=== PATIENT | female | born 1960 | race Caucasian/White ===

== ENCOUNTER 2017-04-27 19:15 | Observation (INO) ==
[2017-04-27] MEDS ORDERED: GI Cocktail 40 ML EACH PO ONE (19:30)
[2017-04-27] MEDS ORDERED: Dicyclomine 20 MG/2 ML AMPUL IM ONE (19:31)
[2017-04-27 19:44] LABS: Bilirubin,Urine Negative (Negative); Blood,Urine Negative (Negative); Clarity,Urine Clear (Clear); Color,Urine Yellow (Yellow); Glucose,Urine (UA) Normal (Normal); Ketones,Urine Negative (Negative); Leukocyte Esterase,Urine Negative (Negative); Nitrite,Urine Negative (Negative); PH,Urine 6.5 pH Units (5.0-8.0); Protein,Urine Negative (Neg-Trace); Specific Gravity,Urine 1.015 (1.010-1.025); Urobilinogen,Urine Normal (Normal)
[2017-04-27 20:06] LABS: Basophils % 0.3 %; Eosinophils # 0.1 K/mcL (0.0-0.6); Eosinophils % 1.5 %; Hematocrit 39.9 % (35.3-44.9); Hemoglobin 13.5 g/dL (11.5-15.4); Immature Granulocytes % 0.4 % (0-4); Lymphocytes # 2.2 K/mcL (0.6-4.6); Mean Corpuscular HGB Conc 33.8 g/dL (31.6-35.5); Mean Corpuscular Hemoglobin 30.3 pg (28.0-33.3); Mean Corpuscular Volume 89.5 fL (83.0-100.0); Mean Platelet Volume 11.5 fL (9.4-12.4); Monocytes # 0.6 K/mcL (0.0-1.3); Monocytes % 7.6 %; Neutrophils # 4.9 K/mcL (1.6-8.9); Platelet Count 226 K/mcL (140-400); Red Blood Count 4.46 M/mcL (3.82-4.97); Red Cell Distribution Width 12.3 % (11.5-14.5); Segmented Neutrophils % 62.2 %
[2017-04-27 20:19] LABS: Alanine Aminotransferase 44 Units/L (7-52); Albumin 4.3 g/dL (3.5-5.7); Albumin/Globulin Ratio 1.6 (1.1-2.2); Alkaline Phosphatase 82 Units/L (34-104); Aspartate Amino Transferase 27 Units/L (13-39); BUN/Creatinine Ratio 21 (6-26); Bilirubin,Indirect 0.3 mg/dL (0.0-1.2); Bilirubin,Total 0.3 mg/dL (0.3-1.0); Blood Urea Nitrogen 15 mg/dL (6-20); Calcium 9.4 mg/dL (8.6-10.3); Carbon Dioxide 23 mEq/L (23-29); Chloride 107 mEq/L (98-107); Globulin 2.7 g/dL (2.4-3.5); Glucose 102 mg/dL (70-105); Lipase 24 Units/L (11-82); Osmolality,Calculated 289 (280-300); Sodium 139 mEq/L (136-145); eGFR For African Americans > 60 (> 60); eGFR For Non-African Americans > 60 (> 60)
[2017-04-27] MEDS ORDERED: Aspirin 81 MG TAB.CHEW PO ONE (21:18)
--- NOTE | 2017-04-27 21:23 | Emergency Department Note ---
Disposition Clinical Impression: Chest pain, rule out acute myocardial infarction Abdominal pain Qualifiers: Abdominal location: right upper quadrant Qualified Code(s): R10.11 - Right upper quadrant pain Disposition: Still a Patient Condition: Fair Time of Disposition: 21:25 Abdominal Pain HPI - General Chief Complaint: ED Abdominal Pain Stated Complaint: abd pain Time Seen by Provider: 04/27/17 19:17 Source: patient, EMS Mode of arrival: EMS Limitations: no limitations Nursing Notes Reviewed: Yes Vital Signs Reviewed: Yes - History of Present Illness HPI Narrative: 56-year-old female presents emergency Department with concerns of right upper quadrant abdominal pain and epigastric pain. Patient states her symptoms have been present over the past 1.5 weeks. Patient states she was evaluated one week ago and had a CT of the abdomen and pelvis which was negative for acute surgical abnormality. Patient has records from her previous visit with her which I been able to evaluate. Patient was diagnosed with a generic abdominal pain however in the record it mentions possible gastritis versus gastric ulcer. Patient has follow-up with GI physician within the next week for further evaluation of possible ulcer. Patient initially denies chest pain, shortness of breath, palpitations. She states she has multiple episodes of loose stool a day. Patient states she will take a pill and "have diarrhea 10 minutes later with the pill fully formed". No recent trauma. No changes in medications other than starting Carafate within the past week. Pain Scale: 9 - Related Data Home Medications Medication Instructions Recorded Confirmed Tizanidine HCl 4 mg PO BID PRN 05/29/15 04/28/17 Gabapentin [Neurontin] 800 mg PO TID 02/22/16 04/28/17 BuPROPion SR (12 HR) [Wellbutrin 100 mg PO BID 04/28/17 04/28/17 SR] Dexlansoprazole [Dexilant] 60 mg PO BID 04/28/17 04/28/17 Fenofibrate 160 mg PO DAILY 04/28/17 04/28/17 [place]-3/Dha/Epa/Fish Oil [Fish Oil 1,000 mg PO BID 04/28/17 04/28/17 1,000 mg Softgel] Oxybutynin Chloride [Ditropan Xl] 5 mg PO DAILY 04/28/17 04/28/17 Ropinirole HCl [Requip] 1 mg PO BID 04/28/17 04/28/17 SUMAtriptan Succinate [Imitrex] 100 mg PO AD PRN 04/28/17 04/28/17 Simvastatin [Zocor] 80 mg PO HS 04/28/17 04/28/17 Topiramate [Topamax] 50 mg PO BID 04/28/17 04/28/17 Trazodone HCl 100 mg PO HS 04/28/17 04/28/17 Previous Rx's Medication Instructions Recorded HYDROcodone/Acet 5/325 mg [[place] 1 - 2 tab PO Q6H PRN #40 tablet 04/30/17 5-325 mg] Ondansetron [Zofran] 8 mg PO Q8HR PRN #15 tablet 04/30/17 Sennosides/Docusate Sodium [[place] 1 each PO DAILY #7 tablet 04/30/17 Plus] Allergies Allergy/AdvReac Type Severity Reaction Status Date / Time doxycycline Allergy Anaphylaxis Verified 02/02/15 20:40 ketorolac [From Toradol] Allergy Anaphylaxis Verified 05/29/15 16:00 tramadol Allergy Difficulty Verified 02/02/15 20:40 Breathing All systems ED: reviewed and negative except as stated. 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 Psychiatric history: Reports: anxiety, depression - Social History Smoking status: Former smoker Alcohol use: Reports: rarely Drug use: Reports: none Physical Exam General: Alert and in no acute distress Skin: Warm, dry, intact Head: Normocephalic and atraumatic Neck: Supple, trachea midline and no tenderness Cardiovascular: RRR, no murmur, normal perfusion Respiratory: CTAB, no wheezing, cough, or respiratory distress Musculoskeletal: Normal strength, no tenderness, swelling or deformity GI: Soft, tenderness to palpation of the right upper quadrant without evidence of rigidity, guarding, rebound. Neuro: A&O to person, place, time and situation. No focal deficits noted on exam Psychiatric: cooperative and appropriate mood and affect. - General Limitations: no limitations General appearance: alert, in no apparent distress Course - Reevaluation(s) Reevaluation #1: 21:20 patient tolerated by mouth intake well in the emergency department. She did not have any bowel movements while in the emergency department despite drinking to full glasses of water which she states usually causes a bowel movement. She now complains of pain to the right lateral chest which is described as a sharp stabbing pain and an ache. Patient is now in the room clutching her right chest stating the pain is now worse. Patient now reports that she had chest pain 2 days ago, was evaluated at [facility] see however she states they did not do a chest x-ray or cardiac evaluation. She is unable to recall when her last cardiac evaluation was performed. We do not have a stress test or other cardiac evaluation in our system. I will obtain a d-dimer to rule out PE and I will admit the patient for further care and evaluation of her chest pain. Vital Signs Temperature 98.2 F 04/27/17 19:16 Pulse Rate 74 04/27/17 19:16 Respiratory Rate 18 04/27/17 19:16 Blood Pressure 132/81 04/27/17 19:16 O2 Sat by Pulse Oximetry 95 04/27/17 19:16 Temperature 98 F 04/30/17 15:00 Pulse Rate 76 04/30/17 15:00 Respiratory Rate 18 04/30/17 15:00 Blood Pressure 132/78 04/30/17 15:00 O2 Sat by Pulse Oximetry 96 04/30/17 15:00 Oxygen Delivery Oxygen Delivery Room Air Abdominal Pain - MDM Narrative Medical decision making narrative: D-dimer returned elevated. Chest x-ray did not show evidence of acute infiltrate. Patient will receive CTA of the chest to rule out PE. Patient care will be transferred to night physician, Dr. Alvarenga, pending further care and evaluation and likely admission to the hospital for further care. - Medical Records Medical records reviewed: Yes I reviewed the patient's medical records. - Lab Data Lab results reviewed: Yes I reviewed the patient's lab results. Result diagrams: 04/30/17 02:38 04/28/17 02:36 Lab Results 04/27/17 04/27/17 04/27/17 Range/Units 19:36 19:53 19:53 WBC 7.9 (4.3-11.1) K/mcL RBC 4.46 (3.82-4.97) M/mcL Hgb 13.5 (11.5-15.4) g/dL Hct 39.9 (35.3-44.9) % MCV 89.5 (83.0-100.0) fL MCH 30.3 (28.0-33.3) pg MCHC 33.8 (31.6-35.5) g/dL RDW 12.3 (11.5-14.5) % Plt Count 226 (140-400) K/mcL MPV 11.5 (9.4-12.4) fL Immature Gran % 0.4 (0-4) % Seg Neutrophils % 62.2 % Lymphocytes % 28.0 % Monocytes % 7.6 % Eosinophils % 1.5 % Basophils % 0.3 % Neutrophils # 4.9 (1.6-8.9) K/mcL Lymphocytes # 2.2 (0.6-4.6) K/mcL Monocytes # 0.6 (0.0-1.3) K/mcL Eosinophils # 0.1 (0.0-0.6) K/mcL Basophils # 0.0 (0.0-0.2) K/mcL D-Dimer (0-500) ng/mLFEU Sodium 139 (136-145) mEq/L Potassium 4.0 (3.5-5.1) mEq/L Chloride 107 (98-107) mEq/L Carbon Dioxide 23 (23-29) mEq/L BUN 15 (6-20) mg/dL Creatinine 0.71 (0.60-1.20) mg/dL Est GFR ( Amer) > 60 (> 60) Est GFR (Non-Af Amer) > 60 (> 60) BUN/Creatinine Ratio 21 (6-26) Glucose 102 (70-105) mg/dL Calculated Osmolality 289 (280-300) Lactic Acid (0.5-2.2) mmol/L Calcium 9.4 (8.6-10.3) mg/dL Total Bilirubin 0.3 (0.3-1.0) mg/dL Direct Bilirubin 0.0 (0.0-0.2) mg/dL Indirect Bilirubin 0.3 (0.0-1.2) mg/dL AST 27 (13-39) Units/L ALT 44 (7-52) Units/L Alkaline Phosphatase 82 (34-104) Units/L Troponin I (< 0.04) ng/mL Serum Total Protein 7.0 (6.4-8.9) g/dL Albumin 4.3 (3.5-5.7) g/dL Globulin 2.7 (2.4-3.5) g/dL Albumin/Globulin Ratio 1.6 (1.1-2.2) Lipase 24 (11-82) Units/L Urine Color Yellow (Yellow) Urine Clarity Clear (Clear) Urine pH 6.5 (5.0-8.0) pH Units Ur Specific [place] 1.015 (1.010-1.025) Urine Protein Negative (Neg-Trace) mg/dL Urine Glucose (UA) Normal (Normal) mg/dL Urine Ketones Negative (Negative) mg/dL Urine Blood Negative (Negative) Urine Nitrite Negative (Negative) Urine Bilirubin Negative (Negative) Urine Urobilinogen Normal (Normal) mg/dL Ur Leukocyte Esterase Negative (Negative) Ur Culture Indicated? NO (NO) Stool Occult Blood (Negative) Specimen Rejected 04/27/17 04/27/17 04/27/17 Range/Units 19:53 19:53 19:53 WBC (4.3-11.1) K/mcL RBC (3.82-4.97) M/mcL Hgb (11.5-15.4) g/dL Hct (35.3-44.9) % MCV (83.0-100.0) fL MCH (28.0-33.3) pg MCHC (31.6-35.5) g/dL RDW (11.5-14.5) % Plt Count (140-400) K/mcL MPV (9.4-12.4) fL Immature Gran % (0-4) % Seg Neutrophils % % Lymphocytes % % Monocytes % % Eosinophils % % Basophils % % Neutrophils # (1.6-8.9) K/mcL Lymphocytes # (0.6-4.6) K/mcL Monocytes # (0.0-1.3) K/mcL Eosinophils # (0.0-0.6) K/mcL Basophils # (0.0-0.2) K/mcL D-Dimer (0-500) ng/mLFEU Sodium (136-145) mEq/L Potassium (3.5-5.1) mEq/L Chloride (98-107) mEq/L Carbon Dioxide (23-29) mEq/L BUN (6-20) mg/dL Creatinine (0.60-1.20) mg/dL Est GFR ( Amer) (> 60) Est GFR (Non-Af Amer) (> 60) BUN/Creatinine Ratio (6-26) Glucose (70-105) mg/dL Calculated Osmolality (280-300) Lactic Acid 1.5 (0.5-2.2) mmol/L Calcium (8.6-10.3) mg/dL Total Bilirubin (0.3-1.0) mg/dL Direct Bilirubin (0.0-0.2) mg/dL Indirect Bilirubin (0.0-1.2) mg/dL AST (13-39) Units/L ALT (7-52) Units/L Alkaline Phosphatase (34-104) Units/L Troponin I < 0.03 (< 0.04) ng/mL Serum Total Protein (6.4-8.9) g/dL Albumin (3.5-5.7) g/dL Globulin (2.4-3.5) g/dL Albumin/Globulin Ratio (1.1-2.2) Lipase (11-82) Units/L Urine Color (Yellow) Urine Clarity (Clear) Urine pH (5.0-8.0) pH Units Ur Specific [place] (1.010-1.025) Urine Protein (Neg-Trace) mg/dL Urine Glucose (UA) (Normal) mg/dL Urine Ketones (Negative) mg/dL Urine Blood (Negative) Urine Nitrite (Negative) Urine Bilirubin (Negative) Urine Urobilinogen (Normal) mg/dL Ur Leukocyte Esterase (Negative) Ur Culture Indicated? (NO) Stool Occult Blood (Negative) Specimen Rejected Clotted 04/27/17 04/27/17 Range/Units 20:52 22:09 WBC (4.3-11.1) K/mcL RBC (3.82-4.97) M/mcL Hgb (11.5-15.4) g/dL Hct (35.3-44.9) % MCV (83.0-100.0) fL MCH (28.0-33.3) pg MCHC (31.6-35.5) g/dL RDW (11.5-14.5) % Plt Count (140-400) K/mcL MPV (9.4-12.4) fL Immature Gran % (0-4) % Seg Neutrophils % % Lymphocytes % % Monocytes % % Eosinophils % % Basophils % % Neutrophils # (1.6-8.9) K/mcL Lymphocytes # (0.6-4.6) K/mcL Monocytes # (0.0-1.3) K/mcL Eosinophils # (0.0-0.6) K/mcL Basophils # (0.0-0.2) K/mcL D-Dimer 865 H (0-500) ng/mLFEU Sodium (136-145) mEq/L Potassium (3.5-5.1) mEq/L Chloride (98-107) mEq/L Carbon Dioxide (23-29) mEq/L BUN (6-20) mg/dL Creatinine (0.60-1.20) mg/dL Est GFR ( Amer) (> 60) Est GFR (Non-Af Amer) (> 60) BUN/Creatinine Ratio (6-26) Glucose (70-105) mg/dL Calculated Osmolality (280-300) Lactic Acid (0.5-2.2) mmol/L Calcium (8.6-10.3) mg/dL Total Bilirubin (0.3-1.0) mg/dL Direct Bilirubin (0.0-0.2) mg/dL Indirect Bilirubin (0.0-1.2) mg/dL AST (13-39) Units/L ALT (7-52) Units/L Alkaline Phosphatase (34-104) Units/L Troponin I (< 0.04) ng/mL Serum Total Protein (6.4-8.9) g/dL Albumin (3.5-5.7) g/dL Globulin (2.4-3.5) g/dL Albumin/Globulin Ratio (1.1-2.2) Lipase (11-82) Units/L Urine Color (Yellow) Urine Clarity (Clear) Urine pH (5.0-8.0) pH Units Ur Specific [place] (1.010-1.025) Urine Protein (Neg-Trace) mg/dL Urine Glucose (UA) (Normal) mg/dL Urine Ketones (Negative) mg/dL Urine Blood (Negative) Urine Nitrite (Negative) Urine Bilirubin (Negative) Urine Urobilinogen (Normal) mg/dL Ur Leukocyte Esterase (Negative) Ur Culture Indicated? (NO) Stool Occult Blood Negative (Negative) Specimen Rejected - Radiology Data Radiology results reviewed: Yes I reviewed the patient's radiology results. - EKG Data EKG attestation: Yes I reviewed and interpreted this EKG. EKG results narrative: ECG - interpreted by ED physician. Rate 66, normal sinus rhythm, no STEMI, NH, QT intervals, and QRS within normal limits Attestation Statement - Attestation Attestation: Please see my note from my documentation. I did not document on this chart. This chart is only being signed at the request medical records. It only reflects the evaluation and decision-making of Dr. Stevenson.
[2017-04-27] MEDS ORDERED: *HR* Morphine 2 MG/ML SYRINGE IVP ONE (22:04)
[2017-04-27] MEDS ORDERED: *HR* Morphine 2 MG/ML SYRINGE ONE (22:06)
[2017-04-28] MEDS ORDERED: Metoclopramide 10 MG/2 ML VIAL IVP STA ×2 (00:08→00:48)
[2017-04-28] MEDS ORDERED: Hyoscyamine SL 0.125 MG TAB.SUBL SL STA (00:08)
--- NOTE | 2017-04-28 00:13 | Emergency Department Note ---
START Narrative - START START: Patient was taken over at signout from Dr. olsen. The patient presented for right upper quadrant abdominal pain. Patient's right upper quadrant abdominal pain has been intermittent for the last week. No known aggravating or alleviating factors. Patient states she had previous gallbladder surgery. She was seen at [facility] previously in the emergency department and had CAT scan and workup. She will was discharged and return to the urgent care for evaluation when she was transferred here. Patient describes the pain as a sharp pain with radiation into the chest. She says that when it hurts takes her breath away. She has got associated headache which she believes is secondary to the nausea and vomiting. She has had several episodes of diarrhea. The patient has taken her home medications without any relief. Patient was given medications in the emergency department and states she has not felt any better. This is the patient's second visit for repeated the worsening episodes of pain. Previous CT scan from [facility] has been obtained and her CD is here to be uploaded. The patient's CTA was also negative. After long discussion with family she is not comfortable going home secondary to not being able to keep things down. Patient complained of significant diarrhea but has not had any in the emergency department. On my evaluation the patient continues to have a wet rag over her face complaining of discomfort. The case will be discussed with the hospitalist. Patient will be admitted for intractable right upper quadrant abdominal pain with radiation into the chest. Chest pain. Intractable nausea. Discussed with the hospitalist, Dr. Jaime. Request the patient get the appropriate medications as well as be started on maintenance fluids. Patient accepted for admission.
[2017-04-28] MEDS ORDERED: *HR* LORazepam 2 MG/ML VIAL IVP ONE ×2 (00:23→01:00)
[2017-04-28] MEDS: 0.9 % Sodium Chloride 1,000 ML IVC SCH ×2 (00:41→13:15)
[2017-04-28] MEDS ORDERED: Dicyclomine 20 MG/2 ML AMPUL IM ONE (00:45)
[2017-04-28] MEDS ORDERED: Hyoscyamine SL 0.125 MG TAB.SUBL SL ONE (01:00)
[2017-04-28] MEDS ORDERED: Naloxone 0.4 MG/ML INJ IVP PRN (02:18)
[2017-04-28] MEDS ORDERED: Acetaminophen 325 MG TABLET PO PRN (02:18)
[2017-04-28] MEDS ORDERED: *HR* Promethazine 25 MG/ML VIAL IVP PRN (02:18)
[2017-04-28] MEDS ORDERED: *HR* HYDROmorphone (PF) 1 MG/ML SYRINGE IVP PRN (02:18)
[2017-04-28 02:46] LABS: Basophils % 0.5 %; Eosinophils # 0.1 K/mcL (0.0-0.6); Eosinophils % 1.1 %; Hematocrit 38.7 % (35.3-44.9); Immature Granulocytes % 0.1 % (0-4); Lymphocytes # 2.4 K/mcL (0.6-4.6); Lymphocytes % 31.7 %; Mean Corpuscular HGB Conc 33.6 g/dL (31.6-35.5); Mean Corpuscular Hemoglobin 30.5 pg (28.0-33.3); Mean Corpuscular Volume 90.8 fL (83.0-100.0); Mean Platelet Volume 11.3 fL (9.4-12.4); Monocytes # 0.6 K/mcL (0.0-1.3); Monocytes % 7.6 %; Neutrophils # 4.5 K/mcL (1.6-8.9); Platelet Count 222 K/mcL (140-400); Red Blood Count 4.26 M/mcL (3.82-4.97); Red Cell Distribution Width 12.4 % (11.5-14.5)
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
[2017-04-28 02:59] LABS: BUN/Creatinine Ratio 17 (6-26); Blood Urea Nitrogen 12 mg/dL (6-20); Calcium 9.3 mg/dL (8.6-10.3); Carbon Dioxide 28 mEq/L (23-29); Chloride 106 mEq/L (98-107); Glucose 91 mg/dL (70-105); Osmolality,Calculated 289 (280-300); Potassium 3.9 mEq/L (3.5-5.1); Sodium 140 mEq/L (136-145); eGFR For African Americans > 60 (> 60); eGFR For Non-African Americans > 60 (> 60)
[2017-04-28] MEDS: tiZANidine 4 MG TABLET PO SCH ×2 (03:19→22:47)
[2017-04-28] MEDS: rOPINIRole 1 MG TABLET PO SCH ×3 (03:19→22:48)
[2017-04-28] MEDS: Pantoprazole 40 MG VIAL IVP SCH ×2 (05:10→16:40)
[2017-04-28] MEDS: *HR* HYDROcodone/Acet 5/325 mg TABLET PO PRN ×3 (05:10→16:39)
[2017-04-28] MEDS: *HR* Heparin 5,000 UNIT/ML VIAL SQ SCH ×2 (05:11→16:40)
--- NOTE | 2017-04-28 10:26 | Event Note ---
<Rachael Pena - Last Filed: 04/28/17 12:25> Date of Encounter: 04/28/17 Time of Encounter: 10:25 Patient learning oriented times 3. She reports that she still has right upper quadrant abdominal pain. She has not had vomiting while here. Her last bowel movement was yesterday at home, she states that it was not a normal bowel movement but still loose. Gen.: Vitals noted. No acute distress. AAOx3 HEENT: oropharynx clear, Normocephalic, atraumatic Neck: Supple. No adenopathy Cardiac: RRR, no murmur, +S1/S2 Pulmonary: CTA bilaterally, no wheezes, rales or rhonchi, equal chest expansion Abdomen: soft, RUQ and epigastric tender, Bowel sounds noted, no guarding Extremities: no BLE edema, nontender calf, no cyanosis or clubbing Neuro: A&Ox3, moves all extremities, no focal deficits Psych: Appropriate mood and behavior A/P Abdominal pain: etiology is undetermined. Differential includes gastroenteritis, gastric ulcer multiple bouts of watery and mucus diarrhea, nausea and vomiting not bloody. No diarrhea since given an antidiarrheal medication from the ER at her last visit. Last bowel movement was yesterday a home which was loose but not watery cholecystectomy 2006 afebrile, WBC WNL, urinalysis normal liver enzymes, bilirubin, lipase levels are normal fecal occult negative for blood plan consult surgery for evaluation and possible EGD, recommendations are appreciated ultrasound liver pending G.I. panel ordered NPO chest pain, rule out acute myocardial infarction EKG in ER show normal sinus rhythm and no ST changes troponins stable CTA chest was negative for PE DVT prophylaxis heparin SQ <Candelario Hopkins - Last Filed: 04/28/17 16:47> Date of Encounter: 04/28/17 I conducted a face to face diagnostic evaluation of this patient and my medical decision-making was reviewed with the Resident Physician. I agree with the documented findings, disposition and treatment plan as described except to the extent set forth below: Patient reports burning sharp and crampy epigastric abdominal pain associated with nausea and vomiting lasting for the last 9 days. On examination abdomen is soft, tender in epigastric area and right upper quadrant. No guarding or rebound tenderness. Plan: IV fluids. Nothing by mouth. In control. Antiemetics. Consult surgery. Candelario Hopkins MD
--- NOTE | 2017-04-28 11:42 | General Surgery Consult Note ---
<Bee Mckinnon - Last Filed: 04/28/17 17:29> Date of Encounter: 04/28/17 Time of Encounter: 11:42 Assessment and Plan (1) Abdominal pain Current Visit: Yes Status: Acute 56 y M w/ Hx of fibromyalgia s/p cholecystectomy presenting to ER with chronic RUQ, worsened in past nine days U/S Mild increased hepatic echogenicity consistent with steatosis, otherwise unremarkable -NPO diet from midnight -Plan for EGD. Attending Dr. Lee discussed risk and benefits of procedure with pt and family Pt amenable to plan and and verbalized understanding. Qualifiers: Abdominal location: right upper quadrant Qualified Code(s): R10.11 - Right upper quadrant pain (2) Chest pain, rule out acute myocardial infarction Current Visit: Yes Status: Acute Elevated D-Dimer. CTA, which was negative for PE. Management per primary team. (3) DVT prophylaxis Current Visit: Yes Status: Acute Management per primary team. History of Present Illness Consult date: 04/28/17 Reason for consult: abdominal pain Requesting physician: Lindsay David History of present illness: Ms. Cortes is a 56-year-old female who presented to emergency Department with concerns of right upper quadrant abdominal pain and epigastric pain. Patient states her symptoms have been present over the past nine days. Pain intermittent over past few years. No other household members with similar symptoms. Patient has follow-up with GI physician within the next week for further evaluation of possible ulcer. Endorses emesis, prior to admission. however non-bloody. No emesis this morning. No bloody bowel movements. Pt had continued appetite up to admission. Pt denies recent PPI use. Has missed multiple scheduled outpatient visit for GI. Pt has been seen in [facility] and had CT abd there, result fatty liver. Surgical History: Cholecystectomy (2005) EGD (2016) - OSH Past Med Surg Social Fam HX - Past Medical History Medical history: fibromyalgia, GERD, hyperlipidemia, kidney stones, other Psychiatric history: anxiety, depression - Past Surgical History Surgical History: cholecystectomy - Social History Smoking Status: Never smoker Smokeless Tobacco Status: No Alcohol use: rarely Drug use: none - Family History Father Living Status: Hx Family Cardiac Disorders: Yes Hx Family Respiratory Disorders: Yes (COPD) Mother Living Status: Hx Family Neurologic Disorders: Yes (alzheimers) Medications and Allergies Tizanidine HCl 4 mg PO BID PRN 05/29/15 [History] Gabapentin [Neurontin] 800 mg PO TID 02/22/16 [History] BuPROPion SR (12 HR) [Wellbutrin SR] 100 mg PO BID 04/28/17 [History] Dexlansoprazole [Dexilant] 60 mg PO BID 04/28/17 [History] Fenofibrate 160 mg PO DAILY 04/28/17 [History] [place]-3/Dha/Epa/Fish Oil [Fish Oil 1,000 mg Softgel] 1,000 mg PO BID 04/28/17 [ History] Oxybutynin Chloride [Ditropan Xl] 5 mg PO DAILY 04/28/17 [History] Ropinirole HCl [Requip] 1 mg PO BID 04/28/17 [History] SUMAtriptan Succinate [Imitrex] 100 mg PO AD PRN 04/28/17 [History] Simvastatin [Zocor] 80 mg PO HS 04/28/17 [History] Topiramate [Topamax] 50 mg PO BID 04/28/17 [History] Trazodone HCl 100 mg PO HS 04/28/17 [History] 3 Allergy/AdvReac Type Severity Reaction Status Date / Time doxycycline Allergy Anaphylaxis Verified 02/02/15 20:40 ketorolac [From Toradol] Allergy Anaphylaxis Verified 05/29/15 16:00 tramadol Allergy Difficulty Verified 02/02/15 20:40 Breathing Review of Systems All systems PM: as documented above in the HPI. General Surgery Exam Initial Vital Signs Temp Pulse Resp BP Pulse Ox 98.2 F 74 18 132/81 95 04/27/17 19:16 04/27/17 19:16 04/27/17 19:16 04/27/17 19:16 04/27/17 19:16 - General physical appearance no distress - Eyes normal ocular movement - Respiratory normal expansion, normal respiratory effort, clear to auscultation - Cardiovascular Cardiovascular exam: Present: RRR. Absent: murmurs - Abdomen Abdomen general surgery: Present: bowel sounds present, soft, tender (mild tenderness on palpation. ). Absent: distended - Psychiatric Psychiatric general surgery: Present: appropriate, oriented to person, oriented to place, oriented to time, speech is normal Exam Initial Vital Signs Temp Pulse Resp BP Pulse Ox 98.2 F 74 18 132/81 95 04/27/17 19:16 04/27/17 19:16 04/27/17 19:16 04/27/17 19:16 04/27/17 19:16 Results - Labs 04/28/17 02:36 04/28/17 02:36 Abnormal lab results D-Dimer 865 ng/mLFEU (0-500) H 04/27/17 22:09 Diabetes panel 04/28/17 Range/Units 02:36 Sodium 140 (136-145) mEq/L Potassium 3.9 (3.5-5.1) mEq/L Chloride 106 (98-107) mEq/L Carbon Dioxide 28 (23-29) mEq/L BUN 12 (6-20) mg/dL Creatinine 0.71 (0.60-1.20) mg/dL Glucose 91 (70-105) mg/dL Calcium 9.3 (8.6-10.3) mg/dL Calcium panel 04/28/17 Range/Units 02:36 Calcium 9.3 (8.6-10.3) mg/dL Pituitary panel 04/28/17 Range/Units 02:36 Sodium 140 (136-145) mEq/L Potassium 3.9 (3.5-5.1) mEq/L Chloride 106 (98-107) mEq/L Carbon Dioxide 28 (23-29) mEq/L BUN 12 (6-20) mg/dL Creatinine 0.71 (0.60-1.20) mg/dL Glucose 91 (70-105) mg/dL Calcium 9.3 (8.6-10.3) mg/dL Adrenal panel 04/28/17 Range/Units 02:36 Sodium 140 (136-145) mEq/L Potassium 3.9 (3.5-5.1) mEq/L Chloride 106 (98-107) mEq/L Carbon Dioxide 28 (23-29) mEq/L BUN 12 (6-20) mg/dL Creatinine 0.71 (0.60-1.20) mg/dL Glucose 91 (70-105) mg/dL Calcium 9.3 (8.6-10.3) mg/dL All other labs normal. - Imaging CT scan - pelvis: report reviewed US - abdomen: report reviewed Additional studies: EXAMINATION: CTA OF THE CHEST 04/27/2017 11:30 pm TECHNIQUE: CTA of the chest was performed after the administration of intravenous contrast. Multiplanar reformatted images are provided for review. MIP images are provided for review. Dose modulation, iterative reconstruction, and/or weight based adjustment of the mA/kV was utilized to reduce the radiation dose to as low as reasonably achievable. COMPARISON: 06/25/2008 HISTORY: ORDERING SYSTEM PROVIDED HISTORY: dyspnea r/o PE 70 ml of ISOVUE 370 FINDINGS: Pulmonary Arteries: Pulmonary arteries are adequately opacified for evaluation. No evidence of intraluminal filling defect to suggest pulmonary embolism. Main pulmonary artery is normal in caliber. Mediastinum: No evidence of mediastinal lymphadenopathy. The heart and pericardium demonstrate no acute abnormality. There is no acute abnormality of the thoracic aorta. Lungs/pleura: The lungs are without acute process. No focal consolidation or pulmonary edema. No evidence of pleural effusion or pneumothorax. Upper Abdomen: Limited images of the upper abdomen are unremarkable. Soft Tissues/Bones: No acute bone or soft tissue abnormality. CT/CT angio chest IMPRESSION: No evidence of pulmonary embolism or acute pulmonary abnormality. D/ / Solitario Hinkle MD / Solitario Hinkle MD Interpreting Provider: Solitario Hinkle MD INATION: RIGHT UPPER QUADRANT ULTRASOUND, 04/28/2017 11:26 am COMPARISON: CT of the abdomen and pelvis 10/25/2016. HISTORY: ORDERING SYSTEM PROVIDED HISTORY: RUQ pain Nine day history of right upper quadrant pain. FINDINGS: LIVER: Mild generalized decrease in hepatic echogenicity. No intrahepatic biliary dilatation or focal process. BILIARY SYSTEM: The gallbladder is surgically absent. Absent sonographic Bryan's sign. Mild prominence of the common bile duct at 7 mm, likely physiologic post cholecystectomy. RIGHT KIDNEY: The right kidney is grossly unremarkable without evidence of hydronephrosis. PANCREAS: Visualized portions of the pancreas are unremarkable. OTHER: No evidence of right upper quadrant ascites. US/US liver IMPRESSION: Mild increased hepatic echogenicity consistent with steatosis. Otherwise unremarkable right upper quadrant ultrasound status post cholecystectomy. D/ / 04/28/2017 16:10:00 Damion Real MD / fatimah Interpreting Provider: Damion Real MD Consult Discharge Plan - Plan Referrals: NONE,PCP [Primary Care Provider] - <Emory Lee M - Last Filed: 04/28/17 18:21> Date of Encounter: 04/28/17 Review of Systems All systems PM: A 10-system review of systems was performed and is negative for pertinent findings except as documented above in the HPI. General Surgery Exam Initial Vital Signs Temp Pulse Resp BP Pulse Ox 98.2 F 74 18 132/81 95 04/27/17 19:16 04/27/17 19:16 04/27/17 19:16 04/27/17 19:16 04/27/17 19:16 Exam Initial Vital Signs Temp Pulse Resp BP Pulse Ox 98.2 F 74 18 132/81 95 04/27/17 19:16 04/27/17 19:16 04/27/17 19:16 04/27/17 19:16 04/27/17 19:16 Results - Labs 04/28/17 02:36 04/28/17 02:36 Abnormal lab results D-Dimer 865 ng/mLFEU (0-500) H 04/27/17 22:09 Diabetes panel 04/28/17 Range/Units 02:36 Sodium 140 (136-145) mEq/L Potassium 3.9 (3.5-5.1) mEq/L Chloride 106 (98-107) mEq/L Carbon Dioxide 28 (23-29) mEq/L BUN 12 (6-20) mg/dL Creatinine 0.71 (0.60-1.20) mg/dL Glucose 91 (70-105) mg/dL Calcium 9.3 (8.6-10.3) mg/dL Calcium panel 04/28/17 Range/Units 02:36 Calcium 9.3 (8.6-10.3) mg/dL Pituitary panel 04/28/17 Range/Units 02:36 Sodium 140 (136-145) mEq/L Potassium 3.9 (3.5-5.1) mEq/L Chloride 106 (98-107) mEq/L Carbon Dioxide 28 (23-29) mEq/L BUN 12 (6-20) mg/dL Creatinine 0.71 (0.60-1.20) mg/dL Glucose 91 (70-105) mg/dL Calcium 9.3 (8.6-10.3) mg/dL Adrenal panel 04/28/17 Range/Units 02:36 Sodium 140 (136-145) mEq/L Potassium 3.9 (3.5-5.1) mEq/L Chloride 106 (98-107) mEq/L Carbon Dioxide 28 (23-29) mEq/L BUN 12 (6-20) mg/dL Creatinine 0.71 (0.60-1.20) mg/dL Glucose 91 (70-105) mg/dL Calcium 9.3 (8.6-10.3) mg/dL All other labs normal. - Attending Attestation I examined this patient and my medical decision-making was reviewed with the Resident Physician. I agree with the documented findings, disposition and treatment plan as described except to the extent set forth below. I reviewed the patient's history and assessment/evaluation with interim present. The patient has had a remote history of laparoscopic cholecystectomy and has had intermittent abdominal pain symptoms in the epigastrium and right upper quadrant. She had been scheduled to follow-up with gastroenterology and had been even scheduled to see my colleague Dr. Silva a year or 2 ago but failed to make that appointment. She is had this prolonged intermittent symptoms of right upper quadrant pain and states the pain is now more severe nature and intermittent. There is mild tenderness on palpation but I feel no masses present. I explained to the patient that I do not know the source of her abdominal pain and I think the most likely the etiology will be nonsurgical in nature. She would definitely benefit from a referral to gastroenterology but given the fact that she is currently here in the hospital I do think it would be appropriate to go ahead and proceed with an EGD with MAC. I did forewarn her that if the results do not demonstrate a source behind her pain, which is likely, she would definitely need a referral to gastroenterology and should definitely keep that appointment.
[2017-04-28] MEDS ORDERED: SUMAtriptan succinate 50 MG TABLET PO PRN (13:03)
[2017-04-28] MEDS: Ondansetron 4 MG/2 ML VIAL IVP PRN ×2 (13:14→22:48)
[2017-04-28] MEDS ORDERED: SUMAtriptan succinate 50 MG TABLET PO ONE (17:08)
[2017-04-28] MEDS: *HR* HYDROmorphone (PF) 1 MG/ML SYRINGE IVP PRN ×2 (17:51→21:16)
[2017-04-29] MEDS: *HR* HYDROmorphone (PF) 1 MG/ML SYRINGE IVP PRN ×3 (00:16→20:29)
[2017-04-29] MEDS: 0.9 % Sodium Chloride 1,000 ML IVC SCH (00:54)
[2017-04-29] MEDS: *HR* HYDROcodone/Acet 5/325 mg TABLET PO PRN ×3 (01:52→17:39)
[2017-04-29 05:09] LABS: Basophils % 0.5 %; Eosinophils # 0.1 K/mcL (0.0-0.6); Eosinophils % 1.3 %; Hematocrit 38.7 % (35.3-44.9); Immature Granulocytes % 0.2 % (0-4); Lymphocytes # 2.4 K/mcL (0.6-4.6); Lymphocytes % 38.1 %; Mean Corpuscular HGB Conc 33.6 g/dL (31.6-35.5); Mean Corpuscular Hemoglobin 30.5 pg (28.0-33.3); Mean Corpuscular Volume 90.8 fL (83.0-100.0); Mean Platelet Volume 11.3 fL (9.4-12.4); Monocytes # 0.5 K/mcL (0.0-1.3); Neutrophils # 3.2 K/mcL (1.6-8.9); Platelet Count 219 K/mcL (140-400); Red Blood Count 4.26 M/mcL (3.82-4.97); Red Cell Distribution Width 12.7 % (11.5-14.5); Segmented Neutrophils % 51.9 %
[2017-04-29] MEDS: Pantoprazole 40 MG VIAL IVP SCH ×2 (05:10→17:39)
[2017-04-29] MEDS: *HR* Heparin 5,000 UNIT/ML VIAL SQ SCH ×2 (06:27→17:38)
--- NOTE | 2017-04-29 08:26 | Anesthesia Evaluation PreOp ---
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 History: Other (A/D) Other Medical History: Renal (Stones), GERD, Other (Fibromyalgia, abdominal Pain , Obesity) Anesthesia History: No Prior Anesthetic Complications, Past Anesthesia (GB) : No Alcohol Use: rarely Drug use: none Medications and Allergies Tizanidine HCl 4 mg PO BID PRN 05/29/15 [History] Gabapentin [Neurontin] 800 mg PO TID 02/22/16 [History] BuPROPion SR (12 HR) [Wellbutrin SR] 100 mg PO BID 04/28/17 [History] Dexlansoprazole [Dexilant] 60 mg PO BID 04/28/17 [History] Fenofibrate 160 mg PO DAILY 04/28/17 [History] [place]-3/Dha/Epa/Fish Oil [Fish Oil 1,000 mg Softgel] 1,000 mg PO BID 04/28/17 [ History] Oxybutynin Chloride [Ditropan Xl] 5 mg PO DAILY 04/28/17 [History] Ropinirole HCl [Requip] 1 mg PO BID 04/28/17 [History] SUMAtriptan Succinate [Imitrex] 100 mg PO AD PRN 04/28/17 [History] Simvastatin [Zocor] 80 mg PO HS 04/28/17 [History] Topiramate [Topamax] 50 mg PO BID 04/28/17 [History] Trazodone HCl 100 mg PO HS 04/28/17 [History] 3 Allergy/AdvReac Type Severity Reaction Status Date / Time doxycycline Allergy Anaphylaxis Verified 02/02/15 20:40 ketorolac [From Toradol] Allergy Anaphylaxis Verified 05/29/15 16:00 tramadol Allergy Difficulty Verified 02/02/15 20:40 Breathing - Meds/Allergy Pre-op Review Medications Reviewed: Yes Allergies Reviewed: Yes Beta Blockers on Current Med List: No Anesthesia Results - Labs 04/29/17 04:45 04/28/17 02:36 Anesthesia Exam Vital Signs/O2 Sat, Most Current Temp Pulse Resp BP Pulse Ox 97.7 F 59 18 108/68 94 04/29/17 06:30 04/29/17 06:30 04/29/17 06:30 04/29/17 06:30 04/29/17 06:30 Height: 5'2'' Weight: 208# NPO (# of Hours): > 8 hrs Pain Scale: 0 Pain Scale Used: Numeric (1 - 10) - HEENT Pupil (Motor): Pupils equal, EOMI Mallampati: III Teeth: Normal Oral Opening: Greater than 3 - ELECT[employer]IC [employer] LIBRARIAN LOC: Oriented [employer] LIBRARIAN Motor: Normal RUE, Normal LUE, Normal RLE, Normal LLE, Normal Face [employer]RARIAN Sensory: Normal: RUE, LUE, RLE, LLE, Face - Cardiac Rhythm: Regular Murmur: None JVD: No Carotid Bruit: No - Pulmonary Breath Sounds: bilateral Clear Respiratory Effort: Symmetrical Anesthesia Assess/Plan ASA Score: 2 Modified Ragan Scale for Level of Consciousness: Cooperative, oriented, and tranquil Anesthetic Plan: MAC Autologous Blood: Yes Monitoring Plan: Standard Monitors Recovery Plan: Other
[2017-04-29] MEDS: rOPINIRole 1 MG TABLET PO SCH ×2 (09:14→20:30)
[2017-04-29] MEDS ORDERED: *HR* Propofol 200 MG/20 ML VIAL IVP ONE (09:26)
[2017-04-29] MEDS ORDERED: Lidocaine -MPF 2% 2 ML VIAL ONE (09:26)
--- NOTE | 2017-04-29 09:29 | Internal Med Progress Note ---
<Rachael Pena - Last Filed: 04/29/17 15:47> Date of Encounter: 04/29/17 Time of Encounter: 08:40 - Assessment and plan (1) Abdominal pain Current Visit: Yes Status: Acute Assessment and plan: etiology is undetermined. Differential includes gastroenteritis, gastric ulcer She reports her abdominal cramping, nausea, dry heaping was keeping her up last night. She has not had a bowel movement 2 days due to antidiarrheal medication she received at her last ER visit multiple bouts of watery and mucus diarrhea, nausea and vomiting not bloody. No diarrhea since given an antidiarrheal medication from the ER at her last visit. Last bowel movement was yesterday a home which was loose but not watery. cholecystectomy 2006 afebrile, WBC WNL, urinalysis normal. liver enzymes, bilirubin, lipase levels are normal fecal occult negative for blood G.I. panel negative ultrasound liver- demonstrated steatosis EGD demonstrated erythema in Antrum of stomach, biopsies taken. plan Zofran and Phenergan may consult gastroenterology tomorrow surgery will contact patient with biopsy results, they are signed off surgery consulted for evaluation, recommendations are appreciated regular diet senna plus ordered norco and dilaudid for pain Qualifiers: Abdominal location: right upper quadrant Qualified Code(s): R10.11 - Right upper quadrant pain (2) Chest pain, rule out acute myocardial infarction Current Visit: Yes Status: Acute Assessment and plan: EKG in ER show normal sinus rhythm and no ST changes troponins stable CTA chest was negative for PE (3) GERD (gastroesophageal reflux disease) Current Visit: Yes Status: Acute Assessment and plan: History of Gerd continue Protonix Qualifiers: Qualified Code(s): K21.9 - Gastro-esophageal reflux disease without esophagitis (4) DVT prophylaxis Current Visit: Yes Status: Acute Assessment and plan: DVT prophylaxis heparin SQ - Subjective Interval history: She reports her abdominal cramping, nausea, dry heaping was keeping her up last night. She also reports constipation for 2 days. She has no other complaints at this time. Her is at bedside sleeping. - Constitutional Vitals: Temp Pulse Resp BP Pulse Ox 97.7 F 59 18 108/68 94 04/29/17 06:30 04/29/17 06:30 04/29/17 06:30 04/29/17 06:30 04/29/17 06:30 General appearance: Present: mild distress, A&O X 3, answers questions appropriately Exam: Gen.: Vitals noted. No acute distress. AAOx3 HEENT: oropharynx clear, Normocephalic, atraumatic Neck: Supple. No adenopathy. Cardiac: RRR, no murmur, +S1/S2 Pulmonary: CTA bilaterally, no wheezes, rales or rhonchi, equal chest expansion Abdomen: soft, minimal right upper quadrant and epigastric tender, Bowel sounds noted, no guarding Extremities: no BLE edema, nontender calf, no cyanosis or clubbing Neuro: A&Ox3, moves all extremities, no focal deficits Psych: Appropriate mood and behavior Internal Medicine: Result - Labs CBC & Chem 7: 04/29/17 04:45 04/28/17 02:36 Labs: Short CBC 04/29/17 Range/Units 04:45 WBC 6.2 (4.3-11.1) K/mcL Hgb 13.0 (11.5-15.4) g/dL Hct 38.7 (35.3-44.9) % Plt Count 219 (140-400) K/mcL Neutrophils # 3.2 (1.6-8.9) K/mcL - ABG Interpretation ABG results: PT/INR, D-dimer D-Dimer 865 ng/mLFEU (0-500) H 04/27/17 22:09 - Impressions Impressions Liver Ultrasound 04/28/17 02:23 IMPRESSION: Mild increased hepatic echogenicity consistent with steatosis. Otherwise unremarkable right upper quadrant ultrasound status post cholecystectomy. D/ / 04/28/2017 16:10:00 Damion Real MD / fatimah Interpreting Provider: Damion Real MD Consult Discharge Plan - Plan Additional Instructions: Follow with your [facility]. use the the pain medication as needed follow up with your PCP in 1 2 weeks return to the hospital if you should have increased abdominal pain, fever, chills. Referrals: NONE,PCP [Non-Partnered Physician] - (patient to make follow up due to office being closed. ) Teresa Santiago MD [Partnered Physician] - (gastro office is supposed to call and set up follow up) Prescriptions: Ondansetron [Zofran] 8 mg PO Q8HR PRN #15 tablet PRN Reason: Nausea HYDROcodone/Acet 5/325 mg [[place] 5-325 mg] 1 - 2 tab PO Q6H PRN #40 tablet PRN Reason: Moderate Pain (4-6) Sennosides/Docusate Sodium [Senna Plus] 1 each PO DAILY #7 tablet <Candelario Hopkins - Last Filed: 04/30/17 23:15> Date of Encounter: 04/29/17 - Constitutional Vitals: Temp Pulse Resp BP Pulse Ox 98 F 76 18 132/78 96 04/30/17 15:00 04/30/17 15:00 04/30/17 15:00 04/30/17 15:00 04/30/17 15:00 Internal Medicine: Result - Labs CBC & Chem 7: 04/30/17 02:38 04/28/17 02:36 Labs: Short CBC 04/30/17 Range/Units 02:38 WBC 6.6 (4.3-11.1) K/mcL Hgb 13.5 (11.5-15.4) g/dL Hct 39.5 (35.3-44.9) % Plt Count 216 (140-400) K/mcL Neutrophils # 3.6 (1.6-8.9) K/mcL - ABG Interpretation ABG results: PT/INR, D-dimer D-Dimer 865 ng/mLFEU (0-500) H 04/27/17 22:09 - Impressions Impressions Abdomen CT 04/30/17 13:18 IMPRESSION: Nonobstructive left nephrolithiasis. No right nephrolithiasis. Hepatic steatosis. D/ / John Capone / John Capone Interpreting Provider: John Capone - Attending Attestation I conducted a face to face diagnostic evaluation of this patient and my medical decision-making was reviewed with the Resident Physician. I agree with the documented findings, disposition and treatment plan as described except to the extent set forth below: Patient appears in moderate distress and discomfort due to abdominal pain. Heart is regular. Lungs are clear. Abdomen is soft, tender to palpation in the right upper quadrant. Appreciate general surgery input. We will consult GI. Supportive care with IV opiates for pain and IV antiemetics. Candelario Hopkins MD
[2017-04-29] MEDS ORDERED: Sennosides/Docusate Sodium TABLET PO PRN ×2 (09:30→10:27)
--- NOTE | 2017-04-29 09:50 | Event Note ---
Date of Encounter: 04/29/17 Time of Encounter: 09:47 EGD performed; evidence of erythema in the antrum of the stomach. Biopsies obtained. Can resume oral diet. We will contact her with pathology reports but likely the patient will still require referral to gastroenterology. Will sign off; thank you.
[2017-04-29] MEDS ORDERED: Acetaminophen 325 MG TABLET PO PRN (10:27)
[2017-04-29] MEDS ORDERED: SUMAtriptan succinate 50 MG TABLET PO PRN ×2 (10:27)
[2017-04-29] MEDS ORDERED: Naloxone 0.4 MG/ML INJ IVP PRN (10:27)
[2017-04-29] MEDS: Ondansetron 4 MG/2 ML VIAL IVP PRN (12:16)
--- NOTE | 2017-04-29 13:58 | Anesthesia Evaluation Post Op ---
Date of Encounter: 04/29/17 Time of Encounter: 13:57 - Vital Signs Vital Signs: Vital Signs/O2 Sat, Most Current Temp Pulse Resp BP Pulse Ox 97.9 F 62 18 92/55 93 04/29/17 10:16 04/29/17 10:16 04/29/17 10:16 04/29/17 10:16 04/29/17 10:16 - Lungs Lungs: Clear Ascult./Percussion - Airway Airway: Non-obstructed - Cardiovascular Regular Rate - Mental Status Mental Status: Alert & Oriented, Answers Appropriately - Pain Pain Scale: 0 Pain Scale used: Numeric (1 - 10) - Nausea Vomiting Nausea Vomiting: Not Present - Hydration Hydration: Tolerates oral liquids, Has not voided - Discharge PostOp Status: Transfer Patient to floor
[2017-04-29] MEDS: *HR* Promethazine 25 MG/ML VIAL IVP PRN (17:39)
[2017-04-29] MEDS ORDERED: Temazepam 15 MG CAPSULE PO PRN (18:31)
[2017-04-29] MEDS ORDERED: BENZOCAINE/MENTHOL 1 LOZENGE (BAG OF 6) MM PRN (18:33)
[2017-04-29] MEDS ORDERED: tiZANidine 4 MG TABLET PO SCH (21:00)
[2017-04-30] MEDS: 0.9 % Sodium Chloride 1,000 ML IVC SCH ×4 (00:05→16:04)
[2017-04-30 03:38] LABS: Basophils % 0.3 %; Eosinophils # 0.1 K/mcL (0.0-0.6); Eosinophils % 0.9 %; Hematocrit 39.5 % (35.3-44.9); Hemoglobin 13.5 g/dL (11.5-15.4); Immature Granulocytes % 0.2 % (0-4); Immature Platelets 8.7 % (1.1-6.1); Lymphocytes # 2.3 K/mcL (0.6-4.6); Lymphocytes % 35.5 %; Mean Corpuscular HGB Conc 34.2 g/dL (31.6-35.5); Mean Corpuscular Hemoglobin 30.9 pg (28.0-33.3); Mean Corpuscular Volume 90.4 fL (83.0-100.0); Mean Platelet Volume 11.5 fL (9.4-12.4); Monocytes # 0.6 K/mcL (0.0-1.3); Monocytes % 8.7 %; Neutrophils # 3.6 K/mcL (1.6-8.9); Platelet Count 216 K/mcL (140-400); Red Blood Count 4.37 M/mcL (3.82-4.97); Red Cell Distribution Width 12.6 % (11.5-14.5); Segmented Neutrophils % 54.4 %
[2017-04-30] MEDS: *HR* HYDROcodone/Acet 5/325 mg TABLET PO PRN ×2 (04:16→10:52)
[2017-04-30] MEDS: *HR* Promethazine 25 MG/ML VIAL IVP PRN ×2 (04:23→14:25)
[2017-04-30] MEDS: *HR* Heparin 5,000 UNIT/ML VIAL SQ SCH ×2 (06:07→16:45)
[2017-04-30] MEDS: Pantoprazole 40 MG VIAL IVP SCH ×2 (06:07→16:45)
[2017-04-30] MEDS: rOPINIRole 1 MG TABLET PO SCH (09:16)
[2017-04-30] MEDS ORDERED: BuPROPion SR (12 HR) 100 MG TABLET PO SCH (09:48)
[2017-04-30] MEDS: Ondansetron 4 MG/2 ML VIAL IVP PRN ×2 (10:52→19:01)
[2017-04-30] MEDS: Gabapentin 400 MG CAPSULE PO SCH ×2 (10:52→16:02)
[2017-04-30] MEDS ORDERED: Bisacodyl 10 MG RECTAL SUPPOSITORY RC ONE (11:41)
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
[2017-04-30] MEDS: *HR* HYDROmorphone (PF) 1 MG/ML SYRINGE IVP PRN ×2 (13:32→17:52)
--- NOTE | 2017-04-30 14:09 | Internal Med Progress Note ---
<Rachael Pena - Last Filed: 04/30/17 15:25> Date of Encounter: 04/30/17 Time of Encounter: 10:45 - Assessment and plan (1) Abdominal pain Current Visit: Yes Status: Acute Assessment and plan: Etiology is undetermined. Gastric ulcer and gastroenteritis ruled out. Consider IBS She reports her abdominal cramping, nausea, she has not had a bowel movement 3 days. 11 days of Multiple bouts of watery, mucus, non bloody diarrhea, nausea and vomiting. She has had to ER visits at [facility] where the cause was not determined. No diarrhea since given an antidiarrheal medication from the ER at her last visit prior to her admission here. Cholecystectomy 2006 afebrile, WBC WNL, urinalysis normal. liver enzymes, bilirubin, lipase levels are normal fecal occult negative for blood CT Abd at [facility] showed fatty liver G.I. panel negative ultrasound liver- demonstrated steatosis EGD demonstrated erythema in Antrum of stomach, biopsies taken. Surgery will contact the patient with the biopsy results. Surgery has signed off CT abdomen- Nonobstructive left nephrolithiasis. No right nephrolithiasis. Hepatic steatosis. plan Zofran and Phenergan Gastroenterology consulted, recommendations appreciated regular diet senna plus ordered Dulcolax suppository ordered norco and dilaudid for pain Qualifiers: Abdominal location: right upper quadrant Qualified Code(s): R10.11 - Right upper quadrant pain (2) Chest pain, rule out acute myocardial infarction Current Visit: Yes Status: Acute Assessment and plan: EKG in ER show normal sinus rhythm and no ST changes troponins stable CTA chest was negative for PE (3) GERD (gastroesophageal reflux disease) Current Visit: Yes Status: Acute Assessment and plan: History of Gerd continue Protonix Qualifiers: Esophagitis presence: without esophagitis Qualified Code(s): K21.9 - Gastro -esophageal reflux disease without esophagitis (4) DVT prophylaxis Current Visit: Yes Status: Acute Assessment and plan: DVT prophylaxis heparin SQ - Subjective Interval history: She reported that she still has nausea and abdominal cramping still, she has not had a bowel movement for 3 days. She has no other complaints at this time. - Constitutional Vitals: Temp Pulse Resp BP Pulse Ox 97.6 F 85 16 138/83 94 04/30/17 11:00 04/30/17 11:00 04/30/17 11:00 04/30/17 11:00 04/30/17 11:00 General appearance: Present: mild distress, A&O X 3, answers questions appropriately Exam: Gen.: Vitals noted. No acute distress. AAOx3 HEENT: oropharynx clear, Normocephalic, atraumatic Cardiac: RRR, no murmur, +S1/S2 Pulmonary: CTA bilaterally, no wheezes, rales or rhonchi, equal chest expansion Abdomen: soft, RUQ and epigastric tender, Bowel sounds noted, no guarding, minimally distended MSK: ROM intact, no joint swelling noted Extremities: no BLE edema, nontender calf, no cyanosis or clubbing Neuro: A&Ox3, moves all extremities, no focal deficits Psych: Appropriate mood and behavior Internal Medicine: Result - Labs CBC & Chem 7: 04/30/17 02:38 04/28/17 02:36 Labs: Short CBC 04/30/17 Range/Units 02:38 WBC 6.6 (4.3-11.1) K/mcL Hgb 13.5 (11.5-15.4) g/dL Hct 39.5 (35.3-44.9) % Plt Count 216 (140-400) K/mcL Neutrophils # 3.6 (1.6-8.9) K/mcL - ABG Interpretation ABG results: PT/INR, D-dimer D-Dimer 865 ng/mLFEU (0-500) H 04/27/17 22:09 Consult Discharge Plan - Plan Additional Instructions: 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 use the the pain medication as needed follow up with your PCP in 1 2 weeks return to the hospital if you should have increased abdominal pain, fever, chills. Referrals: NONE,PCP [Non-Partnered Physician] - (patient to make follow up due to office being closed. ) Teresa Santiago MD [Partnered Physician] - (gastro office is supposed to call and set up follow up) Prescriptions: Ondansetron [Zofran] 8 mg PO Q8HR PRN #15 tablet PRN Reason: Nausea HYDROcodone/Acet 5/325 mg [[place] 5-325 mg] 1 - 2 tab PO Q6H PRN #40 tablet PRN Reason: Moderate Pain (4-6) Sennosides/Docusate Sodium [Senna Plus] 1 each PO DAILY #7 tablet <Candelario Hopkins - Last Filed: 04/30/17 22:48> Date of Encounter: 04/30/17 - Constitutional Vitals: Temp Pulse Resp BP Pulse Ox 98 F 76 18 132/78 96 04/30/17 15:00 04/30/17 15:00 04/30/17 15:00 04/30/17 15:00 04/30/17 15:00 Internal Medicine: Result - Labs CBC & Chem 7: 04/30/17 02:38 04/28/17 02:36 Labs: Short CBC 04/30/17 Range/Units 02:38 WBC 6.6 (4.3-11.1) K/mcL Hgb 13.5 (11.5-15.4) g/dL Hct 39.5 (35.3-44.9) % Plt Count 216 (140-400) K/mcL Neutrophils # 3.6 (1.6-8.9) K/mcL - ABG Interpretation ABG results: PT/INR, D-dimer D-Dimer 865 ng/mLFEU (0-500) H 04/27/17 22:09 - Impressions Impressions Abdomen CT 04/30/17 13:18 IMPRESSION: Nonobstructive left nephrolithiasis. No right nephrolithiasis. Hepatic steatosis. D/ / John Capone / John Capone Interpreting Provider: John Capone - Attending Attestation I conducted a face to face diagnostic evaluation of this patient and my medical decision-making was reviewed with the Resident Physician. I agree with the documented findings, disposition and treatment plan as described except to the extent set forth below: Patient had EGD which showed no pathology to explain her abdominal pain. CT abdomen and pelvis with no acute pathology. Her diarrhea has resolved. Current episode likely related to acute gastroenteritis. We will provide supportive care, pain control, antiemetics. Recommend close follow-up with GI outpatient. Candelario Hopkins MD
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
[2017-04-30 17:40] VITALS: BP 132/78
[2017-04-30] MEDS ORDERED: Topiramate 25 MG TABLET PO SCH (21:00)
[2017-04-30] MEDS ORDERED: traZODone 50 MG TABLET PO SCH (21:00)
--- NOTE | 2017-05-01 06:56 | Electrocardiograph Report ---
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
--- NOTE | 2017-05-01 07:01 | Electrocardiograph Report ---
[place] [id number] Test Date: 2017-04-27 Pat Name: Malina Cortes Department: 102 Room: 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
[2017-05-01] MEDS ORDERED: Sennosides/Docusate Sodium TABLET PO SCH (09:00)
[2017-05-01] MEDS ORDERED: Fenofibrate 54 MG TABLET PO SCH (09:00)
== END 2017-04-30 19:30 | disposition home or self-care (01) ==
LOC: EMEROO 19:15 → 3NENU 19:15 → SUATTDRO 04-28 00:33 → 3NENU 04-28 01:09
PROVIDERS: ADMIT Internal Medicine; ATTEND Internal Medicine
PROC: ENDOEBX (2017-04-29 09:00)

== ENCOUNTER 2021-01-14 21:50 | Observation (INO) ==
[2021-01-14] MEDS ORDERED: Melatonin 3 MG TABLET PO PRN (23:37)
[2021-01-14] MEDS ORDERED: Naloxone 0.4 MG/ML INJ IVP PRN (23:37)
[2021-01-14 23:43] VITALS: O2SAT 98
[2021-01-15] MEDS ORDERED: Ondansetron 4 MG/2 ML VIAL IVP ONE (00:43)
[2021-01-15] MEDS ORDERED: *HR* Heparin 5,000 UNIT/ML VIAL SQ SCH (06:00)
[2021-01-15] MEDS ORDERED: *HR* HYDROcodone/Acet 5/325 mg TABLET PO ONE (06:54)
[2021-01-15 07:21] LABS: BUN/Creatinine Ratio 12 (6-26); Blood Urea Nitrogen 8 mg/dL (6-20); Calcium 8.7 mg/dL (8.6-10.3); Carbon Dioxide 25 mEq/L (23-29); Chloride 109 mEq/L (98-107); Glucose 167 mg/dL (70-105); Osmolality,Calculated 296 (280-300); Potassium 3.2 mEq/L (3.5-5.1); Sodium 142 mEq/L (136-145); eGFR For African Americans > 60 (> 60); eGFR For Non-African Americans > 60 (> 60)
[2021-01-15 15:28] VITALS: BP 130/71; PULSE 77; TEMP 98.2
[2021-01-15] MEDS ORDERED: *HR* HYDROcodone/Acet 5/325 mg TABLET PO PRN (15:57)
[2021-01-15] MEDS ORDERED: Fluticasone Propionate Nasal 50 MCG/SPRAY BOTTLE NS PRN (15:57)
[2021-01-15] MEDS ORDERED: Loratadine 10 MG TABLET PO PRN (16:06)
[2021-01-15] MEDS ORDERED: SUMAtriptan succinate 50 MG TABLET PO PRN (16:11)
[2021-01-15] MEDS ORDERED: *HR* LORazepam 1 MG TABLET PO ONE (16:20)
[2021-01-15] MEDS ORDERED: Gabapentin 400 MG CAPSULE PO SCH (21:00)
[2021-01-15] MEDS ORDERED: rOPINIRole 1 MG TABLET PO SCH (21:00)
== END 2021-01-15 18:50 | disposition other institution (70) ==
LOC: 3BNU
PROVIDERS: ADMIT Student in an Organized Health Care Education/Training Program; ATTEND Student in an Organized Health Care Education/Training Program

== ENCOUNTER 2021-01-15 18:49 | Inpatient (IN) ==
[2021-01-15] MEDS ORDERED: Mag Hydrox/Al Hydrox/Simeth 30 ML UDC PO PRN (21:01)
[2021-01-15] MEDS ORDERED: hydrOXYzine pamoate 25 MG CAPSULE PO PRN (21:01)
[2021-01-15] MEDS ORDERED: *HR* LORazepam 1 MG TABLET PO PRN (21:01)
[2021-01-15] MEDS ORDERED: haloperidoL 5 MG TABLET PO PRN (21:01)
[2021-01-15] MEDS ORDERED: MOM Conc 10 ML UD.LIQ PO PRN (21:01)
[2021-01-15] MEDS ORDERED: Haloperidol Lactate 5 MG/ML VIAL IM PRN (21:01)
[2021-01-15] MEDS ORDERED: *HR* LORazepam 2 MG/ML VIAL IM PRN (21:01)
[2021-01-15] MEDS ORDERED: SUMAtriptan succinate 50 MG TABLET PO PRN (21:05)
[2021-01-15] MEDS ORDERED: (Diclofenac Sodium [Arthritis Pain] 100 GM Gel) TP PRN (21:05)
[2021-01-15] MEDS ORDERED: Loratadine 10 MG TABLET PO PRN (21:05)
[2021-01-15] MEDS ORDERED: Fluticasone Propionate Nasal 50 MCG/SPRAY BOTTLE NS PRN (21:05)
[2021-01-15] MEDS: tiZANidine 4 MG TABLET PO SCH (21:56)
[2021-01-15] MEDS: *HR* HYDROcodone/Acet 5/325 mg TABLET PO SCH (21:56)
[2021-01-15] MEDS: rOPINIRole 1 MG TABLET PO SCH (21:56)
[2021-01-16] MEDS: *HR* HYDROcodone/Acet 5/325 mg TABLET PO SCH ×4 (09:39→20:38)
[2021-01-16] MEDS: tiZANidine 4 MG TABLET PO SCH ×3 (09:39→20:38)
[2021-01-16] MEDS ORDERED: Gabapentin 400 MG CAPSULE PO SCH (15:00)
[2021-01-16] MEDS: Gabapentin 400 MG CAPSULE PO SCH ×2 (16:16→20:37)
[2021-01-16] MEDS: rOPINIRole 1 MG TABLET PO SCH (20:38)
[2021-01-17] MEDS: tiZANidine 4 MG TABLET PO SCH ×3 (09:02→21:49)
[2021-01-17] MEDS: Gabapentin 400 MG CAPSULE PO SCH ×3 (09:02→21:49)
[2021-01-17] MEDS: *HR* HYDROcodone/Acet 5/325 mg TABLET PO SCH ×4 (09:02→21:48)
[2021-01-17] MEDS: BuPROPion XL (24 HR) 150 MG TABLET PO SCH (12:01)
[2021-01-17] MEDS: rOPINIRole 1 MG TABLET PO SCH (21:49)
[2021-01-18] MEDS ORDERED: Acetaminophen 325 MG TABLET PO PRN (06:00)
[2021-01-18 08:25] VITALS: BP 140/70; PULSE 63; TEMP 98.5; O2SAT 97
[2021-01-18] MEDS: BuPROPion XL (24 HR) 150 MG TABLET PO SCH (08:36)
[2021-01-18] MEDS: *HR* HYDROcodone/Acet 5/325 mg TABLET PO SCH (08:36)
[2021-01-18] MEDS: Gabapentin 400 MG CAPSULE PO SCH (08:36)
[2021-01-18] MEDS: tiZANidine 4 MG TABLET PO SCH (08:37)
[2021-01-24] MEDS ORDERED: EVOLOCUMAB 140 MG/ML SQ SCH (12:00)
== END 2021-01-18 12:50 | disposition home or self-care (01) | DRG 918 ==
LOC: 1ANU 18:49
PROVIDERS: ADMIT Psychiatry & Neurology Psychiatry; ATTEND Psychiatry & Neurology Psychiatry